=== PATIENT | female | born 1980 | race Caucasian/White ===

== ENCOUNTER 2017-06-01 19:48 | Inpatient (IN) | payer OTHER ==
[~2017-06-01] VITALS: Ht 162.6 cm; Wt 97.5 kg
[2017-06-01 19:55] VITALS: BP_SYST 121
[2017-06-01] MEDS ORDERED: NACL 0.9% 1,000 ML IV ONE ×3 (20:55→23:00)
[2017-06-01] MEDS ORDERED: MINERAL OIL 133 ML ENEMA RC ONE (21:00)
[2017-06-01 21:10] LABS: BILIRUBIN,URINE 1+ (NEGATIVE); BLOOD, URINE 2+ (NEGATIVE); CLARITY/URINE CLEAR (CLEAR); COLOR,URINE YELLOW (YELLOW); GLUCOSE,URINE NEGATIVE (NEGATIVE); KETONES,URINE 1+ (NEGATIVE); LEUKOCYTE ESTERASE ,URINE NEGATIVE (NEGATIVE); NITRITE, URINE NEGATIVE (NEGATIVE); PROTEIN URINE TRACE (NEGATIVE); UROBILINOGEN,URINE 0.2 (0.2-1.0)
[2017-06-01 21:22] LABS: BACTERIA,URINE RARE /HPF (None Seen); MUCUS,URINE 1+ /LPF (None Seen); WBC,URINE 0-3 /HPF (0-3)
[2017-06-01 21:55] LABS: BASOPHILS # (AUTO) 0.2 K/uL (0.0-0.2); BASOPHILS % (AUTO) 1.1 % (0.0-2.0); HEMATOCRIT 43.7 % (36-48); HEMOGLOBIN 14.6 g/dL (12.0-16.0); LYMPHOCYTES # (AUTO) 0.8 K/uL (1.0-5.5); LYMPHOCYTES % (AUTO) 4.9 % (20.5-51.5); MEAN CORPUSCULAR HEMOGLOBIN 31 pg (27-31); MEAN CORPUSCULAR HGB CONC 33 % (32-36); MEAN CORPUSCULAR VOLUME 94 fL (79.0-98.0); MONOCYTES # (AUTO) 0.6 K/uL (0.0-1.0); MONOCYTES % (AUTO) 3.6 % (1.7-9.3); NEUTROPHILS # (AUTO) 14.2 K/uL (1.8-7.7); NEUTROPHILS % (AUTO) 90.4 % (40.0-70.0); PLATELET COUNT (AUTO) 304 K/uL (130-430); RED BLOOD CELL COUNT(AUTO) 4.67 MIL/uL (4.2-6.2); RED CELL DISTRIBUTION WIDTH 11.9 % (9.0-15.0); WHITE BLOOD COUNT (AUTO) 15.8 K/uL (4.8-10.8)
[2017-06-01 22:06] LABS: PROTHROMBIN TIME 10.3 SECS (9.5-12.5)
[2017-06-01 22:08] LABS: CREATININE 0.56 mg/dL (0.55-1.30); POTASSIUM 4.2 mmol/L (3.5-5.1)
[2017-06-01 22:13] LABS: ALBUMIN 3.7 g/dL (3.4-4.8); TOTAL BILIRUBIN 0.4 mg/dL (0.0-1.0)
[2017-06-01] MEDS ORDERED: MAGNESIUM CITRATE 300 ML ORAL SOLUTION PO ONE (22:15)
[2017-06-01] MEDS ORDERED: MAGNESIUM CITRATE 300 ML ORAL SOLUTION ONE (22:20)
[2017-06-01] MEDS ORDERED: cefTRIAXone 2 GM VIAL ONE (22:49)
[2017-06-01] MEDS ORDERED: D5NS 1,000 ML IV SCH (23:00)
[2017-06-01] MEDS ORDERED: GOLYTELY / COLYTE SOLUTION 4 LITERS PO ONE (23:00)
[2017-06-01 23:33] VITALS: BP_SYST 98
[2017-06-02] MEDS ORDERED: ZOLPIDEM TARTRATE 5 MG TABLET PO PRN (07:15)
[2017-06-02] MEDS ORDERED: MUPIROCIN 2% TOPICAL OINTMENT 22 GM NS PRN (07:15)
[2017-06-02] MEDS ORDERED: DOCUSATE SODIUM 100 MG CAPSULE PO PRN (07:15)
[2017-06-02] MEDS ORDERED: ACETAMINOPHEN 325 MG TABLET PO PRN (07:15)
[2017-06-02] MEDS ORDERED: LORazepam 2 MG/ML VIAL IVP PRN (07:15)
[2017-06-02] MEDS ORDERED: MAGNESIUM SULFATE 50 ML IV PRN (07:15)
[2017-06-02] MEDS ORDERED: POTASSIUM CHLORIDE 20 MEQ TAB.PRT.SR PO PRN (07:15)
[2017-06-02] MEDS ORDERED: MORPHINE 2 MG/ML INJ. SYRINGE IVP PRN ×2 (07:15)
[2017-06-02] MEDS ORDERED: ONDANSETRON HCL 4 MG/2 ML VIAL IVP PRN (07:15)
[2017-06-02] MEDS ORDERED: DOCU250C PO (07:27)
[2017-06-02] MEDS ORDERED: POLY17PO4 PO (07:27)
[2017-06-02] MEDS ORDERED: BISA-79 PO (07:27)
[2017-06-02 08:10] VITALS: BP_SYST 114
[2017-06-02 10:51] VITALS: BP_SYST 107
[2017-06-02 12:20] VITALS: BP_SYST 107
== END 2017-06-02 11:40 | disposition home or self-care (01) | DRG 390 ==
LOC: SED 19:48 → SMU 22:54
PROVIDERS: ADMIT General Practice; ATTEND General Practice
DX: K56.41 Fecal impaction (principal); E66.9 Obesity, unspecified; Z68.36 Body mass index [BMI] 36.0-36.9, adult
CPT/HCPCS: 36415; 80053; 81000-TC; 82150-TC; 83605; 83690-TC; 85025; 85610-TC; 85730-TC; 87040-TC; 96361; 96365; 99285; J0696; J7030; J7042; J7060